=== PATIENT | male | born 1955 | race Caucasian/White ===

== ENCOUNTER 2018-11-08 09:04 | Day surgery (SDC) | payer OTHER ==
[~2018-11-08] VITALS: Ht 170.2 cm; Wt 77.1 kg
[2018-11-08] VITALS (9 sets, daily range): BP systolic 124–154; BP diastolic 76–96
[~2018-11-08 09:04] MED LIST: ceFAZolin 1gm IVPB IVPB ONE; celeBREX 200mg Cap **SURGERY PATIENTS ONLY ORAL ONE; oxyCONTIN 20mg tab ORAL ONE
[2018-11-08] MEDS ORDERED: CENTRUM SILVER1 EAC2 PO (09:44)
[2018-11-08] MEDS ORDERED: VITAMIN D400 INTLU ORAL (09:44)
[2018-11-08] MEDS ORDERED: ASPIR 8181 MG ORAL (09:44)
[2018-11-08] MEDS ORDERED: oxyCONTIN 20mg tab ORAL ONE (09:59)
[2018-11-08] MEDS ORDERED: celeBREX 200mg Cap **SURGERY PATIENTS ONLY ORAL ONE (09:59)
[2018-11-08] MEDS ORDERED: NS Irrig 4000ml IRRIG ONE ×2 (12:00→13:35)
[2018-11-08] MEDS ORDERED: LR 1000ml ONE (12:00)
[2018-11-08] MEDS ORDERED: Morphine Sulfate PF 0 ML ONE (12:03)
[2018-11-08] MEDS ORDERED: Kenalog-40 1ml Vial ONE (12:03)
[2018-11-08] MEDS ORDERED: Ketorolac 30mg Inj ONE (12:03)
[2018-11-08] MEDS ORDERED: Bupivacaine 0.25% Inj 30ml INJ ONE (12:04)
[2018-11-08] MEDS ORDERED: Bupivacaine w/Epi 0.5% 30ml Vial INJ ONE (12:04)
[2018-11-08] MEDS ORDERED: EPINEPHrine 1mg/1ml Amp ONE (12:25)
[2018-11-08] MEDS ORDERED: fentaNYL 100 mcg/2 mL IV ONE (12:26)
[2018-11-08] MEDS ORDERED: Midazolam 2mg/2ml Inj ONE (12:27)
[2018-11-08] MEDS ORDERED: Propofol 200mg/20ml IV ONE (13:18)
[2018-11-08] MEDS ORDERED: Metoclopramide 10mg/2ml Inj ONE (13:18)
[2018-11-08] MEDS ORDERED: Lidocaine 1% MPF 10mg/ml 5ml ONE (13:18)
[2018-11-08] MEDS ORDERED: Acetaminophen (Non formulary) 100 ML IV ONE (13:45)
[2018-11-08] MEDS ORDERED: Metoclopramide 10mg/2ml Inj IVP PRN (13:45)
[2018-11-08] MEDS ORDERED: fentaNYL 100 mcg/2 mL IV PRN (13:45)
[2018-11-08] MEDS ORDERED: Glycopyrrolate 0.2mg/ml 1ml Vial ONE (13:50)
[2018-11-08] MEDS ORDERED: Neostigmine 1mg/ml 10ml Inj ONE (13:50)
[2018-11-08] MEDS ORDERED: Zemuron 50mg/5ml Inj IV ONE (14:10)
--- NOTE | 2018-11-08 14:14 | Anethesia Preoperative Eval ---
Anesthesia Pre-op PMH/ROS General Date of Evaluation: Nov 08, 2018 Time of Evaluation: 12:10 Anesthesiologist: naina ASA Score: ASA 2 Mallampati Score Class I : Soft palate, uvula, fauces, pillars visible Class II: Soft palate, uvula, fauces visible Class III: Soft palate, base of uvula visible Class IV: Only hard plate visible Mallampati Classification: Class II Surgeon: carlos Diagnosis: totator cuf repair Surgical Procedure: rotator cuff repair Anesthesia History: none Family History: no anesthesia problems Allergies: Coded Allergies: No Known Allergies (Unverified , 11/08/18) Medications: see eMAR Patient NPO?: Yes NPO Date: Nov 08, 2018 NPO Time: 00:01 Past Medical History Cardiovascular: Reports: HTN; Denies: CAD, TN, valve dz, arrhythmia, other Pulmonary: Denies: asthma, COPD, JOSÉ MIGUEL, other Gastrointestinal/Genitourinary: Denies: GERD, CRI, ESRD, other Neurologic/Psychiatric: Denies: dementia, CVA, depression/anxiety, TIA, other Endocrine: Denies: DM, hypothyroidism, steroids, other HEENT: Denies: cataract (L), cataract (R), glaucoma, LAC VIEUX (L), LAC VIEUX (R), other Hematology/Immune: Denies: anemia, DVT, bleeding disorder, other Musculoskeletal/Integumentary: Denies: OA, RA, DJD, DDD, edema, other PSxH Narrative: none Anesthesia Pre-op Phys. Exam Physician Exam Last Vital Signs Date Time Temp Pulse Resp B/P (MAP) Pulse Ox O2 Delivery O2 Flow Rate FiO2 11/08/18 09:48 Room Air 11/08/18 09:39 98.5 64 18 138/84 97 Constitutional: NAD Neurologic: CN 2-12 intact Cardiovascular: RRR Respiratory: CTA Gastrointestinal: S/NT/ND Airway Exam Mallampati Classification 2 Mallampati Score: Class II ROM: full Dentures: no upper, no lower Anesthesia Pre-op A/P Studies Pre-op Studies: EKG - sr Risk Assessment & Plan Plan: general Peripheral nerve block Status Change Before Surgery: No Pre-Antibiotics Drug: ancef Given Within 1 Hr of Incision: Yes Time Given: 13:00 Zahira Moore CRNA Nov 08, 2018 14:14
--- NOTE | 2018-11-08 14:14 | Immediate Post-Op Evaluation ---
Immediate Post-Op Evalulation Immediate Post-Op Evalulation Procedure: right shoulder arthroscopy Date of Evaluation: Nov 08, 2018 Time of Evaluation: 14:14 IV Fluids: 800 Blood Pressure Systolic: 137 Blood Pressure Diastolic: 70 Pulse Rate: 68 Respiratory Rate: 14 O2 Sat by Pulse Oximetry: 99 Temperature (Fahrenheit): 97.4 Pain Score (1-10): 0 Nausea: No Vomiting: No Complications none Patient Status: awake, reacts, patent Hydration Status: adequate Drug: ancef Given Within 1 Hr of Incision: Yes Time Given: 13:00 Zahira Moore CRNA Nov 08, 2018 14:14
[2018-11-08] MEDS ORDERED: Ropivacaine 5mg/ml Vial 30ml INJ ONE (14:24)
--- NOTE | 2018-11-08 14:43 | Pre-Procedure Note/Attestation ---
Pre-Procedure Note/Attestation Complete Prior to Procedure Planned Procedure: right Procedure Narrative: shoulder arthroscopy, sad, rc repair, slap repair Indications for Procedure Pre-Operative Diagnosis: right shoulder c tear, slap tear, impingement Attestation I attest that I discussed the nature of the procedure; its benefits; risks and complications; and alternatives (and the risks and benefits of such alternatives ), prior to the procedure, with the patient (or the patient's legal solar sales representative and assessor). I attest that, if there was a reasonable possibility of needing a blood transfusion, the patient (or the patient's legal solar sales representative and assessor) was given the [facility] standardized written summary, pursuant to the [place] Blood Safety Act ([place] Health and Safety Code # 1645, as amended). I attest that I re-evaluated the patient just prior to the surgery and that there has been no change in the patient's H&P, except as documented below: Jassi Ayon MD Nov 08, 2018 14:43
--- NOTE | 2018-11-08 15:40 | 48 Hour Post Anesthesia Eval ---
Post Anesthesia Evaluation Procedure: right shoulder arthroscopy Date of Evaluation: Nov 08, 2018 Time of Evaluation: 15:40 Blood Pressure Systolic: 124 0: 76 Pulse Rate: 70 Respiratory Rate: 14 Temperature (Fahrenheit): 97.0 O2 Sat by Pulse Oximetry: 98 Airway: patent Nausea: No Vomiting: No Hydration Status: adequate Cardiopulmonary Status: stable Mental Status/LOC: patient returned to baseline Follow-up Care/Observations: na Post-Anesthesia Complications: none Follow-up care needed: N/A Zahira Moore CRNA Nov 08, 2018 15:40
[2018-11-08] MEDS ORDERED: HYDROmorphone 1mg/ml Carpuject SUBQ PRN (19:01)
[2018-11-08] MEDS ORDERED: D5 1/2NS 1,000 ML IV SCH (19:01)
[2018-11-08] MEDS ORDERED: Norco 5mg/325mg tab ORAL PRN (19:01)
[2018-11-08] MEDS ORDERED: Tylenol #3 tab (300mg/30mg) ORAL PRN (19:01)
--- NOTE | 2018-11-08 19:15 | Operative Note - Dictated ---
DATE OF OPERATION: 11/08/2018 SURGEON: Jassi Ayon M.D. PREOPERATIVE DIAGNOSES: 1. Right shoulder full-thickness rotator cuff tear. 2. Right shoulder SLAP tear. 3. Right shoulder biceps tendon tear. 4. Impingement syndrome. 5. AC joint arthropathy. POSTOPERATIVE DIAGNOSES: 1. AC joint arthropathy. 2. Right shoulder full-thickness rotator cuff tear. 3. Right shoulder SLAP tear. 4. Right shoulder biceps tendon tear. 5. Impingement syndrome. PROCEDURES: 1. Right shoulder arthroscopy with extensive intra-articular debridement to right shoulder. 2. Debridement of the superior labrum/biceps tendon. 3. Right shoulder arthroscopic rotator cuff repair. 4. Right shoulder subacromial decompression bursectomy. 5. Right shoulder AC joint coplaning. ANESTHESIA: Interscalene and general. INDICATION FOR PROCEDURE: The patient is a pleasant gentleman, who has had progressive right shoulder pain. He had MRI, which showed a full-thickness rotator cuff tear. He failed conservative treatment and elected to undergo right shoulder arthroscopic rotator cuff repair. There was some signal change along the biceps tendon, possibility of biceps tenodesis versus a SLAP tear was discussed with the patient. All questions were addressed. DESCRIPTION OF PROCEDURE: After informed consent was obtained, the patient was brought to the operative room and placed under general anesthesia and interscalene. The patient then carefully was placed in beachchair position. Right shoulder was prepped and draped in a sterile manner. Time-out was performed. A posterior skin incision was then made. Trocar was introduced into the glenohumeral joint. No significant chondral damage. Anterior labrum appeared to be intact. Superior labral biceps tendon was completely torn. Subscapularis was intact. Undersurface of the supraspinatus was completely detached from the greater tuberosity. Shaver was then placed through the full-thickness rotator cuff and debridement of intra-articular shoulder was performed including the superior labrum. Once the stable margin of the labrum was obtained, guidewire was then placed in the subacromial space. Complete bursectomy was performed and acromion was identified. Acromioplasty was started from lateral to medial and completed from posterior to anterior. Undersurface of the AC joint was identified with slight inferior osteophytes and therefore AC joint coplaning was performed. At this point, tissue lateral to the articular margin level, a tuberosity was removed. [place] was then placed just lateral to the articular margin. Two mattress sutures were placed along with lateral row suture. Once this was completed, the rotator cuff moved as a unit. Instruments were removed. Portal sites were closed with 3-0 Monocryl sutures. The patient was awoken and taken to recovery room with stable signs. ESTIMATED BLOOD LOSS: None. COMPLICATIONS: None. SPECIMENS: None. IMPLANTS: Include 2 Biomet anchors. Jassi Ayon M.D. DR: LIONEL JOB#: [id number] CC: IGOR
--- NOTE | 2018-11-11 21:45 | Operative Note - Dictated ---
DATE OF OPERATION: 11/11/2018 PREOPERATIVE DIAGNOSES: 1. Right shoulder rotator cuff tear. 2. Right shoulder biceps tendon tear. 3. Right shoulder impingement syndrome. 4. Right shoulder AC joint arthropathy. POSTOPERATIVE DIAGNOSIS: 1. Right shoulder full-thickness rotator cuff tear. 2. Right shoulder long head biceps tendon tear. 3. Right shoulder impingement syndrome/bursitis. 4. Right shoulder AC joint arthropathy. PROCEDURES: 1. Right shoulder extensive intra-articular debridement. 2. Right shoulder arthroscopic rotator cuff repair. 3. Right shoulder subacromial decompression bursectomy. 4. Right shoulder AC joint coplaning. SURGEON: Jassi Ayon M.D. ANESTHESIA: Interscalene with general. INDICATION FOR PROCEDURE: The patient is a pleasant gentleman, who has had significant right shoulder pain. He had evidence of full-thickness rotator cuff tear along with some tears involving the superior labrums and biceps tendon. The patient failed conservative treatment and elected to undergo right shoulder arthroscopy, rotator cuff repair, possible biceps tenodesis with decompression bursectomy. Risks, limitations, expectations, and complications of procedure were discussed in detail. All questions were addressed. DESCRIPTION OF PROCEDURE: After informed consent was obtained, the patient was placed under interscalene general anesthesia. The right shoulder was prepped and draped in a sterile manner. Time-out was performed. A posterolateral stab incision was then made. Trocar was introduced into the glenohumeral joint. The anterior labrum appeared to be intact. There was no significant chondral damage. The superior labrum was intact. There was a stump of the biceps tendon that was still there; however, majority of the biceps tendon was completely torn. Subscapularis was intact. The undersurface of the rotator cuff showed a full-thickness tear with the complete detachment of the greater tuberosity of the supraspinatus. At this point, the shaver was then placed through rotator cuff intra-articular debris, and extensive debridement was performed along with the superior labrum and remnants of long head of biceps tendon. Once this was done, the soft tissue lateral to the articular margin was debrided. placed. A complete bursectomy was performed. There was some of the acromion was identified. Acromioplasty was started from lateral to medial, completed from posterior to anterior. Once that was done, anchor was then placed along with two mattress sutures and a lateral row anchor to cinch down the rotator cuff. Once that was done, the AC joint coplaning was completed. The instruments were removed. Portal sites were closed with 3-0 Monocryl sutures. Steri-Strips and a sterile dressing were applied. The patient was awoken and taken to recovery room with stable vital signs. ESTIMATED BLOOD LOSS: None. COMPLICATIONS: None. SPECIMENS: None. IMPLANTS: Include 2 Biomet arthroscopic anchors. Jassi Ayon M.D. DR: LOYD JOB#: [id number] CC:
--- NOTE | 2018-11-12 14:58 | Operative Note - PDOC ---
Operative Note Operative Note Pre-op Diagnosis: right shoulder c tear, slap tear, impingement Procedure: see op report Post-op Diagnosis: same as pre-op plus Operative Findings: consistent w/pre-op dx studies Anesthesia: regional Specimen: none Complications: none Condition: stable Estimated Blood Loss: none Implant(s) used?: Yes Jassi Ayon MD Nov 12, 2018 14:58
== END 2018-11-08 15:20 | disposition home or self-care (01) ==
LOC: SUR 09:04
DX: M75.121 Complete rotator cuff tear or rupture of right shoulder, not specified as traumatic (principal); S43.431A Superior glenoid labrum lesion of right shoulder, initial encounter; S46.111A Strain of muscle, fascia and tendon of long head of biceps, right arm, initial encounter; M75.41 Impingement syndrome of right shoulder; M12.811 Other specific arthropathies, not elsewhere classified, right shoulder; I10 Essential (primary) hypertension; Z87.891 Personal history of nicotine dependence
CPT/HCPCS: 29823; 29826; 29827; C1713; J0171; J0690; J2250; J2405; J2704; J2710; J2765; J2795; J3010; J3490; 94003; 94150